=== PATIENT | female | born 1970 | race African-American/Black ===

== ENCOUNTER 2017-02-26 02:31 | Emergency (ER) | payer OTHER ==
[~2017-02-26] VITALS: Ht 167.6 cm; Wt 70.3 kg
[~2017-02-26 02:31] MED LIST: FERROUS SULFAT325 MG ORAL; FLONASE1 SPRAYS NASAL; IBUPROFEN600 MG ORAL; NAPROSYN500 M1 ORAL; NKM; NORCO 5-325 TA1 EACH ORAL; OCUFLOX5 ML OP; POLYTRIM OP SOL10 ML LEFT EYE; PROAIR HFA8.5 GM INH; PROMETHAZINE V237 ML ORAL; ZITHROMAX250 MG ORAL; vit D3 PO
[2017-02-26 02:57] VITALS: BP 138/90
[2017-02-26] MEDS ORDERED: Cephalexin 500mg cap ORAL ONE (03:00)
[2017-02-26] MEDS ORDERED: DOXYCYCLINE MO100 MG ORAL (03:22)
--- NOTE | 2017-02-26 03:22 | Emergency Room Report ---
History of Present Illness General Chief Complaint: Laceration Source: Patient Present Illness HPI This 47-year-old female with no past medical history. She presents with a laceration to her right ankle area. This occurred this afternoon. She backed into a cart that is homeless person left in the sidewalk. She sustained a laceration to the ankle area. His been bleeding since then. She continue with her trip with her kids. No nausea no vomiting. No fever or chills. Mild pain. Allergies: Coded Allergies: No Known Allergies (Unverified , 05/22/14) Patient History Past Medical History: see triage record, old chart reviewed Past Surgical History: none Pertinent Family History: none Social History: Denies: smoking Last Menstrual Period: 02/26/17 Now: No : 5 Para: 3 Immunizations: UTD Reviewed Nursing Documentation: PMH: Agreed, PSxH: Agreed Nursing Documentation-PMH Past Medical History: No Stated History Review of Systems Eye: Denies: eye pain, blurred vision ENT: Denies: ear pain, nose congestion, throat swelling Respiratory: Denies: cough, shortness of breath Cardiovascular: Denies: chest pain, palpitations Gastrointestinal: Denies: abdominal pain, diarrhea, nausea, vomiting Musculoskeletal: Denies: back pain, joint pain Skin: Denies: rash Neurological: Denies: headache, numbness Endocrine: Denies: increased thirst, increased urine Hematologic/Lymphatic: Denies: easy bruising All Other Systems: negative except mentioned in HPI Physical Exam Vital Signs Date Time Temp Pulse Resp B/P (MAP) Pulse Ox O2 Delivery O2 Flow Rate FiO2 02/26/17 02:37 98.4 95 14 138/90 95 vitals normal Sp02 EP Interpretation: reviewed, normal General Appearance: well appearing, no apparent distress, alert Head: normocephalic, atraumatic Eyes: bilateral eye PERRL, bilateral eye EOMI ENT: hearing grossly normal, normal pharynx Neck: full range of motion, supple, no meningismus Respiratory: chest non-tender, lungs clear, normal breath sounds Cardiovascular #1: regular rate, rhythm, no murmur Gastrointestinal: normal bowel sounds, non tender, no mass, no organomegaly, no bruit, non-distended Musculoskeletal: back normal, gait/station normal, normal range of motion, other - 4 centimeter laceration over the right Achilles area. Does not involving the tendon. No foreign body. Psychiatric: mood/affect normal Skin: warm/dry Procedures Laceration/Wound Repair Laceration/Wound Repair : Consent: Verbal Wound Location: lower extremity Wound's Depth, Shape: linear, irregular, contused tissue Wound Length (cm): 4 Wound Explored: clean Irrigated w/ Saline (ccs): 1000 Betadine Prep?: Yes Anesthesia: 1% Lidocaine Volume Anesthetic (ccs): 5 Wound Repaired With: sutures Suture Size/Type: 5:0, proline Number of Sutures: 6 Patient Tolerated: Well Complications: None Medical Decision Making Diagnostic Impression: Primary Impression: Laceration of right ankle Qualified Codes: S91.011A - Laceration without foreign body, right ankle, initial encounter ER Course She presents With a laceration to the police area. No tendon laceration. No foreign body. We'll discharge home. Last Vital Signs Date Time Temp Pulse Resp B/P (MAP) Pulse Ox O2 Delivery O2 Flow Rate FiO2 02/26/17 02:37 98.4 95 14 138/90 95 Status: improved Disposition: HOME, SELF-CARE Condition: Stable Scripts Doxycycline Monohydrate* (DOXYCYCLINE MONOHYDRATE*) 100 Mg Capsule 100 MG ORAL Q12H, #14 CAP 0 Refills Prov: BALWINDER CHUNG M.D. 02/26/17 Patient Instructions: Laceration Care, Adult Additional Instructions: Followup with your DrMelchor in 7-10 days for suture removal. Return for evidence of infection. BALWINDER CHUNG M.D. Feb 26, 2017 03:22
[2017-02-26] MEDS ORDERED: Bacitracin Oint UD TOPIC ONE (03:30)
[2017-02-26 03:34] VITALS: BP 138/90
== END 2017-02-26 03:35 | disposition home or self-care (01) ==
LOC: EMR 03:00
DX: S91.011A Laceration without foreign body, right ankle, initial encounter (principal); W22.8XXA Striking against or struck by other objects, initial encounter; Y92.480 Sidewalk as the place of occurrence of the external cause
CPT/HCPCS: 12002; 99283; Z7502

== ENCOUNTER 2017-03-18 02:36 | Emergency (ER) | payer OTHER ==
[~2017-03-18] VITALS: Ht 167.6 cm; Wt 70.3 kg
[~2017-03-18 02:36] MED LIST changes: +DOXYCYCLINE MO100 MG ORAL
[2017-03-18] MEDS ORDERED: NKM (02:46)
--- NOTE | 2017-03-18 03:05 | Emergency Room Report ---
History of Present Illness General Chief Complaint: Wound Recheck/Suture Removal Source: Patient Present Illness HPI Is a 47-year-old female who had a laceration over the Achilles tendon area about 2 weeks ago. I sutured her up. Patient here for suture removal. No redness or fever. No nausea no vomiting patient finished her antibiotics. Allergies: Coded Allergies: No Known Allergies (Unverified , 05/22/14) Patient History Past Medical History: see triage record, old chart reviewed Past Surgical History: other Pertinent Family History: none Social History: Denies: smoking Last Menstrual Period: 2 WEEKS AGO Now: No Immunizations: other Reviewed Nursing Documentation: PMH: Agreed, PSxH: Agreed Nursing Documentation-PMH Past Medical History: No Stated History Review of Systems Eye: Denies: eye pain, blurred vision ENT: Denies: ear pain, nose congestion, throat swelling Respiratory: Denies: cough, shortness of breath Cardiovascular: Denies: chest pain, palpitations Gastrointestinal: Denies: abdominal pain, diarrhea, nausea, vomiting Musculoskeletal: Denies: back pain, joint pain Skin: Denies: rash Neurological: Denies: headache, numbness Endocrine: Denies: increased thirst, increased urine Hematologic/Lymphatic: Denies: easy bruising All Other Systems: negative except mentioned in HPI Physical Exam Vital Signs Date Time Temp Pulse Resp B/P (MAP) Pulse Ox O2 Delivery O2 Flow Rate FiO2 03/18/17 02:42 98.1 98 16 148/100 99 Room Air vitals unremarkable Sp02 EP Interpretation: reviewed, normal General Appearance: well appearing, no apparent distress, alert Head: normocephalic, atraumatic Eyes: bilateral eye PERRL, bilateral eye EOMI ENT: hearing grossly normal, normal pharynx Neck: full range of motion, supple, no meningismus Respiratory: chest non-tender, lungs clear, normal breath sounds Cardiovascular #1: regular rate, rhythm, no murmur Gastrointestinal: normal bowel sounds, non tender, no mass, no organomegaly, no bruit, non-distended Musculoskeletal: back normal, gait/station normal, normal range of motion, other - Left Achilles area: Laceration site looks clean. No evidence of infection. No drainage. No redness to Neurologic: alert, oriented x3 Psychiatric: mood/affect normal Skin: warm/dry Procedures Additional Procedure Procedure Narrative Procedure: Suture removal Indication: Scheduled removal Description: Area clean with chlorhexidine. Using a small scissors remove the sutures without any difficulty. Patient tolerated procedure without a problem. Medical Decision Making Diagnostic Impression: Primary Impression: Encounter for removal of sutures ER Course Patient here for suture removal. No evidence of infection. No abscess. Last Vital Signs Date Time Temp Pulse Resp B/P (MAP) Pulse Ox O2 Delivery O2 Flow Rate FiO2 03/18/17 02:42 98.1 98 16 148/100 99 Room Air Status: improved Disposition: HOME, SELF-CARE Condition: Stable Additional Instructions: Followup your Dr. in 7 days as needed. Return if worse. BALWINDER CHUNG M.D. Mar 18, 2017 03:05
[2017-03-18 03:09] VITALS: BP 148/100
[2017-03-18 03:11] VITALS: BP 148/90
== END 2017-03-18 03:15 | disposition home or self-care (01) ==
LOC: EMR 03:03
DX: S81.812D Laceration without foreign body, left lower leg, subsequent encounter (principal); Z48.02 Encounter for removal of sutures
CPT/HCPCS: 99281

== ENCOUNTER 2017-09-02 13:01 | Emergency (ER) | payer OTHER ==
[~2017-09-02] VITALS: Ht 167.6 cm; Wt 65.8 kg
[2017-09-02 13:26] VITALS: BP 151/100
--- NOTE | 2017-09-02 13:28 | Emergency Room Report ---
History of Present Illness General Chief Complaint: Chest Pain Source: Patient Present Illness HPI 47yo F p/w cough x 5 days, sinus congestion, chest pain with coughing, brownish sputum Denies recent travel, OCP use, hemoptysis, leg pain/swelling, f/c Allergies: Coded Allergies: No Known Allergies (Unverified , 05/22/14) Patient History Past Medical History: see triage record Last Menstrual Period: 08/06/17 Reviewed Nursing Documentation: PMH: Agreed; PSxH: Agreed Nursing Documentation-PMH Past Medical History: No History, Except For Hx Hypertension: Yes Review of Systems All Other Systems: negative except mentioned in HPI Physical Exam Vital Signs Date Time Temp Pulse Resp B/P (MAP) Pulse Ox O2 Delivery O2 Flow Rate FiO2 09/02/17 13:09 98.4 121 21 151/100 97 Room Air 98.4 Sp02 EP Interpretation: reviewed, normal General Appearance: no apparent distress, alert, non-toxic Head: normocephalic Eyes: bilateral eye normal inspection, bilateral eye PERRL, bilateral eye EOMI ENT: normal ENT inspection, hearing grossly normal, normal pharynx, no angioedema, normal voice, moist mucus membranes Neck: normal inspection, full range of motion, supple, supple/symm/no masses Respiratory: chest non-tender, lungs clear, normal breath sounds, chest symmetrical, palpation of chest normal Cardiovascular #1: normal peripheral pulses, regular rate, rhythm Cardiovascular #2: 2+ radial (R), 2+ radial (L) Gastrointestinal: normal inspection, non tender, soft, no mass, no guarding, no rebound Rectal: deferred Genitourinary: normal inspection, no CVA tenderness Musculoskeletal: back normal, gait/station normal, normal range of motion, non- tender, no calf tenderness, Sharron's Sign negative Neurologic: alert, responsive, human resources trainee III-XII nml as tested, motor strength/tone normal, sensory intact, speech normal Psychiatric: judgement/insight normal, memory normal, mood/affect normal, no suicidal/homicidal ideation Skin: normal color, no rash, warm/dry, normal turgor Lymphatic: no adenopathy Medical Decision Making Diagnostic Impression: Primary Impression: Chest pain Additional Impression: Leukopenia ER Course Patient with sinus congestion, normal exam other than conjunctival injection and mild rhinorrhea with cough Cough likely bronchitis vs. post-nasal drip She has known htn, will recommend f/u after low salt diet She is not having respiraphasic cp, hemoptysis, or active chest tightness, more just with cough Patient with WBC 2.4, explained need to monitor this as outpatient Will dc home with nasal steroids, ibuprofen, f/u with PMD for bp eval, WBC count re-eval EKG Diagnostic Results EKG Time: 13:12 EP Interpretation: no st-t changes, no twi, no [id number] Rate: normal Rhythm: NSR ST Segments: no acute changes ASA given to the pt in ED: Yes Rhythm Strip Diag. Results Rhythm Strip Time: 13:17 EP Interpretation: yes Rate: 87 Rhythm: NSR, no PVC's, no ectopy Chest X-Ray Diagnostic Results Chest X-Ray Diagnostic Results : Chest X-Ray Ordered: Yes # of Views/Limited/Complete: 1 View Indication: Chest Pain EP Interpretation: Yes PA Xray: Interpretation reviewed Interpretation: no consolidation, no effusion, no pneumothorax, no acute cardiopulmonary disease Impression: No acute disease Electronically Signed by: Eddie Cross MD Last Vital Signs Date Time Temp Pulse Resp B/P (MAP) Pulse Ox O2 Delivery O2 Flow Rate FiO2 09/02/17 13:09 98.4 121 21 151/100 97 Room Air 98.4 Disposition: HOME, SELF-CARE Condition: Stable Scripts Guaifenesin/D-Methorphan Hb/Pe (ROBITUSSIN COUGH-COLD CF LIQ) 118 Ml Liquid 118 ML PO TID PRN for For Cough for 7 Days, ML Prov: EDDIE CROSS M.D 09/02/17 Ibuprofen* (MOTRIN*) 600 Mg Tablet 600 MG ORAL Q8H PRN for For Pain, #20 TAB 0 Refills Prov: EDDIE CROSS M.D 09/02/17 Mometasone Furoate (NASONEX) 17 Gm [place].pump 2 SPRAYS NASAL DAILY for 7 Days, GM 0 Refills Prov: EDDIE CROSS M.D 09/02/17 EDDIE CROSS M.D Sep 02, 2017 13:28
[2017-09-02] MEDS ORDERED: Aspirin Baby 81mg PO ONE (13:30)
[2017-09-02] MEDS ORDERED: ROBITUSSIN COU118 M1 PO (13:34)
[2017-09-02] MEDS ORDERED: IBUPROFEN600 MG ORAL (13:34)
[2017-09-02] MEDS ORDERED: NASONEX17 GM NASAL (13:34)
[2017-09-02 13:35] LABS: HEMATOCRIT 40.6 % (37.0-47.0); HEMOGLOBIN 12.9 G/DL (12.0-16.0); MEAN CORPUSCULAR VOLUME 83 FL (80-99); PLATELET COUNT 239 K/UL (150-450); RED BLOOD COUNT 4.92 M/UL (4.20-5.40); RED CELL DISTRIBUTION WIDTH 18.1 % (11.6-14.8); WHITE BLOOD COUNT 2.4 K/UL (4.8-10.8)
[2017-09-02] MEDS ORDERED: guaiFENesin DM 100mg/5ml ORAL PRN (13:45)
[2017-09-02] MEDS ORDERED: Guaifenesin/DM 10ml syrup ORAL PRN (13:45)
[2017-09-02 13:59] LABS: ANION GAP 14 mmol/L (5-15); BLOOD UREA NITROGEN 12 mg/dL (7-18); CALCIUM 9.1 MG/DL (8.5-10.1); CARBON DIOXIDE 23 MMOL/L (21-32); CHLORIDE 103 MMOL/L (98-107); CREATININE 0.9 MG/DL (0.55-1.30); POTASSIUM 3.1 MMOL/L (3.5-5.1); SODIUM 140 MMOL/L (136-145)
[2017-09-02 14:04] LABS: ALANINE AMINOTRANSFERASE 17 U/L (12-78); ALBUMIN 4.2 G/DL (3.4-5.0); ALKALINE PHOSPHATASE 53 U/L (46-116); ASPARTATE AMINO TRANSFERASE 19 U/L (15-37); BILIRUBIN,TOTAL 0.3 MG/DL (0.2-1.0)
[2017-09-02 14:23] VITALS: BP 145/86
[2017-09-02 14:48] VITALS: BP 133/86
--- NOTE | 2017-09-02 15:21 | Diagnostic Imaging Report ---
Indication: Chest pain Technique: One view of the chest Comparison: 05/22/2014 Findings: Lungs and pleural spaces are clear. Heart size is normal . No significant change Impression: No acute process
--- NOTE | 2017-09-03 15:00 | Cardiology Report ---
APPROVED REPORT EKG Measurement Heart [id number] Normal sinus rhythm Right atrial enlargement Borderline ECG
== END 2017-09-02 14:57 | disposition home or self-care (01) ==
LOC: EMR 13:29
DX: R07.9 Chest pain, unspecified (principal); D72.819 Decreased white blood cell count, unspecified; I10 Essential (primary) hypertension
CPT/HCPCS: 36415; 71045; 80053; 84484; 85007; 85025; 93005; 99284; J8499

== ENCOUNTER 2018-02-05 07:48 | Emergency (ER) | payer OTHER ==
[~2018-02-05] VITALS: Ht 167.6 cm; Wt 70.3 kg
[~2018-02-05 07:48] MED LIST changes: +NASONEX17 GM NASAL; +ROBITUSSIN COU118 M1 PO
--- NOTE | 2018-02-05 08:40 | Emergency Room Report ---
History of Present Illness General Chief Complaint: Upper Extremity Injury Source: Patient Present Illness HPI Patient presents to the emergency department today complaining of right thumb pain. Patient states that she had her hand stuck in a jar when she was on make lemonade and she pulled it out and felt a pop in her thumb. Since then patient has a pain in her thumb with worsening swelling. This occurred about 5 days ago. She has pain limited range of motion. No other injuries noted. Symptoms noted to be moderate to severe.No other modifying factors. No other associated signs and symptoms. No other complaints were noted. Allergies: Coded Allergies: No Known Allergies (Unverified , 05/22/14) Patient History Past Medical History: HTN Past Surgical History: none Pertinent Family History: none Social History: Denies: smoking, alcohol use, drug use Last Menstrual Period: 01/15/18 Reviewed Nursing Documentation: PMH: Agreed; PSxH: Agreed Nursing Documentation-PM Past Medical History: No Stated History Hx Hypertension: Yes Review of Systems All Other Systems: negative except mentioned in HPI Physical Exam Vital Signs Date Time Temp Pulse Resp B/P (MAP) Pulse Ox O2 Delivery O2 Flow Rate FiO2 02/05/18 07:57 98.6 78 18 175/99 98 Room Air 98.6 Sp02 EP Interpretation: reviewed, normal General Appearance: normal inspection, well appearing, no apparent distress, alert Head: atraumatic Eyes: bilateral eye normal inspection ENT: normal ENT inspection, hearing grossly normal, normal voice Respiratory: lungs clear, normal breath sounds, no respiratory distress, no retraction, no wheezing Cardiovascular #1: regular rate, rhythm, no edema Gastrointestinal: soft Musculoskeletal: decreased range of motion - Due to pain at the right thumb, swelling - right thumb Neurologic: normal inspection, alert, responsive, speech normal Psychiatric: normal inspection, judgement/insight normal, mood/affect normal Skin: normal inspection, normal color, no rash Procedures Splinting Splinting : Consent: Verbal Location: Right thumb Pre-Made Type: metal Splint: Right thumb, metal splint Pre-Proc Neuro Vasc Exam: normal Post-Proc Neuro Vasc Exam: normal Patient Tolerated: Well Complications: None Medical Decision Making Diagnostic Impression: Primary Impression: Sprain of hand, thumb, right ER Course Patient presents emergency department today complaining of right thumb pain. Differential considerations include fracture dislocation versus sprain. Given patient's presentation felt x-rays were indicated. X-rays were noted to be negative. Given patient's x-rays are negative I felt the patient likely sprained her thumb. Recommend outpatient follow-up. Patient was given a splint.Patient is advised to follow up with primary doctor in 2-3 days and return the emergency room for any worsening symptoms and as needed. Other X-Ray Diagnostic Results Other X-Ray Diagnostic Results : # of Views/Limited Vs Complete: 3 View Indication: Pain EP Interpretation: Yes Interpretation: no dislocation, no fractures, other - mild soft tissue swelling Impression: Other Electronically Signed by: Electronically signed by Gregory Griffin MD Last Vital Signs Date Time Temp Pulse Resp B/P (MAP) Pulse Ox O2 Delivery O2 Flow Rate FiO2 02/05/18 08:11 98.6 02/05/18 07:57 78 18 175/99 98 Room Air Status: improved Disposition: HOME, SELF-CARE Condition: Stable Scripts Ibuprofen* (MOTRIN*) 600 Mg Tablet 600 MG ORAL Q8H PRN for For Pain, #30 TAB 0 Refills Prov: Gregory Griffin MD 02/05/18 Referrals: NON PHYSICIAN (PCP) Gregory Griffin MD Feb 05, 2018 08:40
[2018-02-05] MEDS ORDERED: IBUPROFEN600 MG ORAL (08:44)
[2018-02-05 08:47] VITALS: BP 159/95
--- NOTE | 2018-02-05 10:28 | Diagnostic Imaging Report ---
Indication: pain Right hand pain Findings: 3 views of the right hand were obtained. Normal bony mineralization and alignment are demonstrated. No acute fractures, erosions, or periosteal reaction are seen. Soft tissues are unremarkable. Impression: No acute findings.
== END 2018-02-05 08:47 | disposition home or self-care (01) ==
LOC: EMR 08:11
DX: S63.601A Unspecified sprain of right thumb, initial encounter (principal); W23.0XXA Caught, crushed, jammed, or pinched between moving objects, initial encounter; Y93.89 Activity, other specified; Y92.9 Unspecified place or not applicable
CPT/HCPCS: 29130; 99283

== ENCOUNTER 2019-04-07 14:20 | Emergency (ER) | payer MEDICAID, OTHER ==
[~2019-04-07] VITALS: Ht 165.1 cm; Wt 65.8 kg
[2019-04-07 14:41] VITALS: BP 185/101
--- NOTE | 2019-04-07 15:35 | Emergency Room Report ---
History of Present Illness General Chief Complaint: Toothache Source: Patient Present Illness HPI This patient left prior to evaluation by medical provider. Allergies: Coded Allergies: No Known Allergies (Unverified , 04/07/19) Nursing Documentation-[facility] Past Medical History: No History, Except For Hx Hypertension: Yes Physical Exam Vital Signs Date Time Temp Pulse Resp B/P (MAP) Pulse Ox O2 Delivery O2 Flow Rate FiO2 04/07/19 14:41 99.0 90 18 185/101 (129) 96 Room Air Medical Decision Making PA Attestation Dr. Pineda Is my supervising Physician whom patient management has been discussed with. ER Course This patient left prior to evaluation by medical provider. Last Vital Signs Date Time Temp Pulse Resp B/P (MAP) Pulse Ox O2 Delivery O2 Flow Rate FiO2 04/07/19 14:41 99.0 77 18 185/101 96 Room Air Disposition: LEFT W/OUT BEING SEEN Condition: Unknown Referrals: NOT CHOSEN IPA/,REFERRING (PCP) Celeste Jones Apr 07, 2019 15:35
== END 2019-04-07 17:04 | disposition left against medical advice (07) ==
LOC: EMR 15:12
DX: K08.89 Other specified disorders of teeth and supporting structures (principal); I10 Essential (primary) hypertension; Z53.21 Procedure and treatment not carried out due to patient leaving prior to being seen by health care provider

== ENCOUNTER 2019-05-01 18:44 | Emergency (ER) | payer MEDICAID ==
[~2019-05-01] VITALS: Ht 167.6 cm; Wt 63.5 kg
[2019-05-01 18:58] VITALS: BP 173/113
--- NOTE | 2019-05-01 19:26 | NUR ---
ED Nurse Note: PT WALKED IN DUE TO TOOTHACHE THAT RADIATES TO HER RIGHT SIDE OF JAW. PT HAS AN UPCOMING DENTIST APPOINTMENT IN May. AAO X4 AND AMBULATORY.
[2019-05-01] MEDS ORDERED: Tylenol #3 tab (300mg/30mg) ORAL ONE (20:15)
--- NOTE | 2019-05-01 20:18 | Emergency Room Report ---
History of Present Illness General Chief Complaint: Toothache Source: Patient Present Illness HPI 49-year-old female presents to the emergency department complaining of 8 out of 10 severity pain to the back molar of the right lower jaw that is been severe and constant x3 days. Patient reports her symptoms initially started 1 month ago when she had dental procedure performed. Patient states dentist attempted to perform root canal however there was moderate infection and he decided to do it in 2 stages. Patient reports that the completion of her root canal is in May. Patient states that initially he gave her amoxicillin which cleared her symptoms for over 3 weeks however her symptoms have returned. Patient denies trauma or fall she denies swelling of the gumline or swollen tender lymph nodes. Patient reports that the pain is so severe its causing her to have ear pain. No other aggravating or relieving factors at this time. Patient reports food or liquids exacerbate her symptoms. Allergies: Coded Allergies: No Known Allergies (Unverified , 04/07/19) Patient History Past Medical History: see triage record Past Surgical History: none Pertinent Family History: none Last Menstrual Period: on period Now: No Immunizations: UTD Reviewed Nursing Documentation: PMH: Agreed; PSxH: Agreed Nursing Documentation-PMH Past Medical History: No Stated History Hx Hypertension: Yes Review of Systems All Other Systems: negative except mentioned in HPI Physical Exam Vital Signs Date Time Temp Pulse Resp B/P (MAP) Pulse Ox O2 Delivery O2 Flow Rate FiO2 05/01/19 18:58 98.6 97 16 173/113 (133) 99 Room Air Sp02 EP Interpretation: reviewed, normal General Appearance: no apparent distress, alert, GCS 15, non-toxic Head: normocephalic, atraumatic Eyes: bilateral eye normal inspection, bilateral eye PERRL ENT: hearing grossly normal, normal voice, other - no evidence of gum abscess. Tooth no. 31, TTP mostly amalgam filling, little crown left. Neck: full range of motion Respiratory: lungs clear, normal breath sounds, speaking full sentences Cardiovascular #1: regular rate, rhythm Musculoskeletal: normal range of motion, gait/station normal, non-tender Neurologic: alert, motor strength/tone normal, oriented x3, sensory intact, responsive, speech normal Psychiatric: judgement/insight normal Skin: no rash, normal color Lymphatic: no adenopathy Medical Decision Making PA Attestation Dr. Navarro is my supervising Physician whom patient management has been discussed with. Diagnostic Impression: Primary Impression: Dental infection Additional Impression: Elevated blood pressure reading ER Course 49-year-old female presents to the emergency department complaining of 8 out of 10 severity pain to the back molar of the right lower jaw that is been severe and constant x3 days. Patient reports her symptoms initially started 1 month ago when she had dental procedure performed. Patient states dentist attempted to perform root canal however there was moderate infection and he decided to do it in 2 stages. Patient reports that the completion of her root canal is in May. Patient states that initially he gave her amoxicillin which cleared her symptoms for over 3 weeks however her symptoms have returned. Patient denies trauma or fall she denies swelling of the gumline or swollen tender lymph nodes. Patient reports that the pain is so severe its causing her to have ear pain. No other aggravating or relieving factors at this time. Patient reports food or liquids exacerbate her symptoms. Ddx considered but are not limited to cellulitis, dental abscess, orbital cellulitis, d/l tooth, dental pain. trigeminal neuralgia Vital signs: Elevated BP, otherwise VS are WNL, pt. is afebrile- Denies DEWITT, dizziness, N/V or CP H&PE are most consistent with dental infection- no evidence of gum abscess. Tooth no. 31, TTP mostly amalgam filling, little crown left. ORDERS: none required at this time, the diagnosis is clinical ED INTERVENTIONS: -Amoxicillin -Tylenol # 3 DISCHARGE: At this time pt. is stable for d/c to home. Will provide printed patient care instructions, and any necessary prescriptions. Care plan and follow up instructions have been discussed with the patient prior to discharge. Last Vital Signs Date Time Temp Pulse Resp B/P (MAP) Pulse Ox O2 Delivery O2 Flow Rate FiO2 05/01/19 18:58 98.6 97 16 173/113 99 Room Air Disposition: HOME, SELF-CARE Condition: Stable Scripts Ibuprofen* (MOTRIN*) 600 Mg Tablet 600 MG ORAL THREE TIMES A DAY, #30 TAB 0 Refills Prov: Celeste Jones 05/01/19 Acetaminophen With Codeine (T#3) (TYLENOL #3 TAB*) Y Tab 1 TAB ORAL Q6H PRN for For Pain, #15 TAB Prov: Celeste Jones 05/01/19 Amoxicillin* (AMOXIL*) 500 Mg Capsule 500 MG ORAL EVERY 8 HOURS for 7 Days, #21 CAP Prov: Celeste Jones 05/01/19 Patient Instructions: Dental Pain Additional Instructions: Take medications as directed. Follow up with a Dentist in 3-5 days, even if your symptoms have resolved. * * Return sooner to ED if new symptoms occur, or current symptoms become worse. Do not drink alcohol, drive, or operate heavy machinery while taking Tylenol # 3 as this may cause drowsiness. - Please note that this Emergency Department Report was dictated using [employer] intern[employer] technology software, occasionally this can lead to erroneous entry secondary to interpretation by the dictation equipment. Celeste Jones May 01, 2019 20:18
[2019-05-01] MEDS ORDERED: IBUPROFEN600 MG ORAL (20:19)
[2019-05-01] MEDS ORDERED: ACETAMINOPHEN-1 EAC1 ORAL (20:19)
[2019-05-01] MEDS ORDERED: AMOXICILLIN500 MG ORAL (20:19)
[2019-05-01 20:45] VITALS: BP 158/90
--- NOTE | 2019-05-01 20:45 | NUR ---
ER DISCHARGE NOTE: Patient is cleared to be discharged per PA, pt is aox4, on room air, with stable vital signs. pt was given dc and prescription instructions, pt was able to verbalize understanding, pt id band removed. pt is able to ambulate with steady gait. pt took all belongings.
== END 2019-05-01 20:45 | disposition home or self-care (01) ==
LOC: EMR 20:42
DX: K04.7 Periapical abscess without sinus (principal); I10 Essential (primary) hypertension
CPT/HCPCS: 99282